=== PATIENT | male | born 2000 | race Two or more races ===

== ENCOUNTER 2024-06-03 16:39 | Emergency (ER) | payer MEDICAID ==
[~2024-06-03] VITALS: Ht 182.9 cm; Wt 70.0 kg
[2024-06-03 17:05] VITALS: PULSE 86; RESP 12; O2SAT 100
--- NOTE | 2024-06-03 17:31 | ED.PDOC ---
History of Present Illness HPI Comments 24M BIBA w/ no prior Hx associated to the c/c of an Overdose. EMS informed that the pt was smoking meth/fentanyl today and passed out on the sidewalk and bystanders called EMS on the pt. When the EMS arrived on scene and immediately gave the pt Narcan and the pt woke up. Denies chills, fever, N/V/D< SOB, CP or no other associated symptom's, modifiers, recent injuries or sick contacts at this time. Chief Complaint: Overdose Time Seen by MD: 17:00 Reviewed Notes: Nurses Notes, Medications, Allergies Information Source: Patient, Emergency Med Personnel Mode of Arrival: EMS Severity: Moderate Timing: Minutes Duration: Since onset, Minutes Prehospital treatment: Other (Narcan) Past Medical History PAST MEDICAL HISTORY: Unknown Surgical History: Unknown Family History Family History: Reviewed,noncontributory to illness, Unknown Social History Smoker: Unknown Alcohol: Unknown Drugs: Methamphetamine, Other (Fentanyl) Constitutional: reports: others (OD); denies: chills, diaphoresis, fatigue, fever, malaise, sweats, weakness EENTM: denies: blurred vision, double vision, ear bleeding, ear discharge, ear drainage, ear pain, ear ringing, eye pain, eye redness, hearing loss, mouth pain, mouth swelling, nasal discharge, nose bleeding, nose congestion, nose pain, photophobia, tearing, throat pain, throat swelling, voice changes, others Respiratory: denies: cough, hemoptysis, orthopnea, SOB at rest, shortness of breath, SOB with excertion, stridor, wheezing, others Cardiovascular: denies: chest pain, dizzy spells, diaphoresis, Dyspnea on exertion, edema, irregular heart beat, left arm pain, lightheadedness, palpit ations, PND, syncope, others Gastrointestinal: denies: abdomen distended, abdominal pain, blood streaked b owels, constipated, diarrhea, dysphagia, difficulty swallowing, hematemesis, melena, nausea, poor appetite, poor fluid intake, rectal bleeding, rectal pain, vomiting, others Genitourinary: denies: burning, dysuria, flank pain, frequency, hematuria, incontinence, penile discharge, penile sore, pain, testicle pain, testicle swelling, urgency, others Neurological: denies: dizziness, fainting, headache, left sided numbness, left sided weakness, numbness, paresthesia, pre-existing deficit, right sided numbness, right sided weakness, seizure, speech problems, tingling, tremors, weakness, others Musculoskeletal: denies: back pain, gout, joint pain, joint swelling, muscle pain, muscle stiffness, neck pain, others Integumetry: denies: bruises, change in color, change in hair/nails, dryness, laceration, lesions, lumps, rash, wounds, others Allergic/Immunocompromised: denies: Difficulty Healing, Frequent Infections, Hives, Itching, others Hematologic/Lymphatic: denies: anemia, blood clots, easy bleeding, easy bruisi ng, swollen glands, others Endocrine: denies: excessive hunger, excessive sweating, excessive thirst, exce ssive urination, flushing, intolerance to cold, intolerance to heat, unexplained weight gain, unexplained weight loss, others Psychiatric: denies: anxiety, bipolar disorder, depression, hopeless, panic disorder, schizophrenia, sleepless, suicidal, others All Other Systems: Reviewed and Negative Physical Exam General Appearance: No Apparent Distress, Normal HEENT: Normal ENT Inspection, Pharynx Normal, TMs Normal Neck: Full Range of Motion, Non-Tender, Normal, Normal Inspection Respiratory: Chest Non-Tender, Lungs Clear, No Accessory Muscle Use, No Respiratory Distress, Normal Breath Sounds Cardiovascular: No Edema, No JVD, No Murmur, No Gallop, Normal Peripheral Pulses, Regular Rate/Rhythm Breast Exam: Deferred Gastrointestinal: No Organomegaly, Non Tender, No Pulsatile Mass, Normal Bowel Sounds, Soft Genitalia: Deferred Pelvic: Deferred Rectal: Deferred Extremities: No calf tenderness, Normal capillary refill, Normal inspection, Normal range of motion, Non-tender, No pedal edema Musculoskeletal : Apperance: Normal Neurologic: Alert, monument stonecutter II-XII nml as Tested, No Motor Deficits, Normal Affect, Normal Mood, No Sensory Deficits Cerebellar Function: Normal Reflexes: Normal Skin: Dry, Normal Color, Warm Lymphatic: No Adenopathy Was a procedure done? Was a procedure done?: No X-Ray, Labs, Meds, VS Vital Signs Date Time Temp Pulse Resp B/P (MAP) Pulse Ox O2 Delivery O2 Flow Rate FiO2 06/03/24 19:00 93 13 123/68 (86) 98 06/03/24 17:05 86 12 100 Room Air* 0 21 06/03/24 17:05 97.9 86 12 125/79 (94) 100 97.9 06/03/24 16:48 102 06/03/24 16:46 97.7 104 20 123/73 (90) 99 97.7 Time of 1ST Reevaluation: 17:30 Reevaluation 1ST: Unchanged Patient Education/Counseling: Diagnosis, Treatment, Prognosis Family Education/Counseling: No Family Present Departure 1 Departure Time of Disposition: 20:27 Impression: Primary Impression: Overdose of fentanyl Disposition: HOME / SELF CARE / HOMELESS Condition: Stable Additional Instructions: ED DISCHARGE INSTRUCTIONS Instructions: Please read all instructions provided in this packet carefully. Although you have been discharged from the Emergency Department, this does not mean that you have a "clean bill of health". No definitive diagnosis for your symptoms has been made today. It is possible that you are in the process of developing a serious illness. This is why you must return to the ED without fail if any new or worsening symptoms (especially if your symptoms include chest pain, trouble breathing, abdominal pain, fever, headache, confusion, trouble seeing, or trouble walking) It is also very important that you see a primary care doctor within the next 1-3 days to follow up. If you are unable to get an appointment, return to the ED for re-evaluation. Substance use disorder treatment resources: [place]dbh/sudrs/ Call the Substance Use Disorder Helpline, 24-hours of the day for a free and confidential assessment: Outpatient treatment providers: [facility] [address] [facility] [address] | [facility] [address] [facility] | [address] [facility] | [place] [facility] [address] [place] [address] [address], [place] [address] Community based centers that support recovery by offering self-help groups, resources, and education. Individuals may call or visit a location near you for services: [facility] [address], [place]. [facility] [place] | [facility] [address] [facility] | [facility] [address] [facility], [place] [address] | [facility] [address] | What is naloxone? Naloxone is a medicine that reverses the effects of an opioid emergency. Opioids are strong pain medicines. Examples include hydrocodone, oxycodone, fentanyl, and morphine. Heroin is also an opioid. Taking too much of an opioid can slow or stop your breathing. This is an emergency. If naloxone is given soon enough, it may save a life. Naloxone comes in a rescue kit you can carry with you. You may hear it called a Narcan kit. The rescue kit may contain: A nasal spray device that contains the medicine. The medicine along with syringes and needles. Your doctor can give you a prescription for a rescue kit and show you how to use it. In some places you can get kits without a prescription. Who should have a naloxone kit? Naloxone kits save lives. Keep one with you at all times if you or someone you know: Takes any opioids, whether prescribed to you or to someone else. This also includes heroin and methadone. Takes opioids with alcohol or medicines that make you sleepy, like benzodiazepines ("benzos," Xanax, Valium, or Klonopin). Uses cocaine, meth or other illegal drugs. They could be mixed with unknown amounts of opioids. Has a history of substance use. Has had an opioid emergency before. If you accidentally take too much of an opioid, you may not be able to give yourself naloxone. Make sure that your family and friends know you have a kit. Tell them how and when to use it. When is naloxone used? Naloxone is used when a person shows signs of an opioid emergency. A person may have taken too much of an opioid if they have: Slow, shallow, or stopped breathing. Pinpoint pupils. Blue or purple lips or fingertips. No response when you ask questions, shake the person, or rub the person's breastbone with your knuckles. Make sure your family and friends know about these signs of an opioid emergency. If someone appears to have taken too much of an opioid, call 911. This is an emergency. How is it used? If you take too much of an opioid, you may not be able to give yourself the medicine. So it's very important that your friends and family know how and when to give it to you. Rescue kits come with instructions. There are two ways to give the medicine: Nasal spray. This is the simplest method. The mist is sprayed into the nose of a person who is having an opioid emergency. The person should be lying down when the mist is sprayed. Injection with needle and syringe. Follow the instructions very carefully. The medicine can be injected through clothing. Symptoms of an opioid emergency may return a few minutes after the first dose from the rescue kit. If that happens, a second dose is needed. Rescue kits may come with two doses for that reason. Keep your rescue kit with you always. You never know when someone might need it. If you think you or someone else may be having an opioid emergency but you're not sure, use the kit anyway. Aside from going through withdrawal, which may be uncomfortable, there is no danger in using this medicine. Go to the emergency room or call 911 right away. More treatment may be needed. How do you give naloxone nasal spray? 1. Check to see if the person is responsive. Look for a response when you ask questions or shake the person. 2. Look for signs of an opioid emergency. These include: Slow, shallow, or stopped breathing. Blue or grayish lips or fingertips. 3. Put the person on their back. Tilt their head back. 4. Put the nasal spray tip in one nostril. Push firmly on the plunger. 5. Call 911, or ask someone else to call. Follow the reverberatory furnace operator's directions. If the person doesn't respond after 2 to 3 minutes, give another dose in the other nostril. Naloxone spray can't be reused. A new nasal spray is needed for a second dose. 6. Reposition the person, and wait for help. When the person starts breathing, lay them on their left side with their right knee bent and the left arm above their head. Put their right hand under their head to support it. Stay with the person until help arrives. e-Prescriptions Naloxone HCl (Narcan) 4 Mg/0.1 Ml Spr 4 MG NA ONCE PRN, #2 SPRAY Prov: EDY MONTES MD 06/03/24 Critical Care Note Critical Care Time?: No Stability Stability form required: No I personally scribed for SMOOTH NEWSOME MD ([email or web address]) on 06/03/24 at 17:31. Electronically submitted by Didier Lal ([email or web address]). SMOOTH NEWSOME MD Jun 03, 2024 17:31 EDY MONTES MD Jun 03, 2024 20:39
--- NOTE | 2024-06-03 19:15 | ECG ---
[facility] Test Date: 2024-06-03 Test Time: 16:45:14 Pat Name: ANSELMO GRADY Department: ED Room: Gender: M Litigation Secretary: OMAIRA : 2000 Requested By: SMOOTH NEWSOME Order Number: [id number] Reading MD: Roc Srinivasan Measurements Intervals [place] Rate: 102 P: 84 WI: 147 QRS: 102 QRSD: 97 T: 65 QT: 359 QTc: 468 Interpretive Statements Sinus tachycardia Borderline right axis deviation ST elev, probable normal early repol pattern Baseline wander in lead(s) V6 Electronically Signed On 06-04-2024 19:18:59 PDT by Roc Srinivasan Please click the below link to view image of tracing.
[2024-06-03 19:20] VITALS: BP 125/70; PULSE 94; RESP 12; TEMP 98.2; O2SAT 98
[2024-06-03] MEDS ORDERED: NALO4SPR2 (20:27)
== END 2024-06-03 21:42 | disposition home or self-care (01) ==
LOC: EDBD 16:39 → ER 16:56
DX: T40.411A Poisoning by fentanyl or fentanyl analogs, accidental (unintentional), initial encounter (principal); F15.10 Other stimulant abuse, uncomplicated; Y92.480 Sidewalk as the place of occurrence of the external cause
CPT/HCPCS: 93005